=== PATIENT | female | born 2000 | race Hispanic/Latino ===

== ENCOUNTER 2018-04-01 04:07 | Emergency (ER) | payer SELFPAY ==
[2018-04-01] MEDS ORDERED: NA CHLORIDE 0.9% 50 ML IV ONE (05:02)
[2018-04-01] MEDS ORDERED: NA CHLORIDE 0.9% 1,000 ML ONE (05:02)
[2018-04-01] MEDS ORDERED: CEFTRIAXONE 1000 MG/VIAL ONE (05:02)
[2018-04-01 05:05] LABS: Urine Blood 2+ (NEG); Urine Glucose NEGATIVE (NEG); Urine Protein 1+ (NEG)
[2018-04-01 05:30] LABS: Urine Bacteria LOADED /HPF (<20); Urine Culture Reflex Order REFLEXED
--- NOTE | 2018-04-01 06:21 | ER ---
Nurse's Notes [facility] Name: Christine Oneil Age: 17 yrs Sex: Female : 2000 Arrival Date: 04/01/2018 Time: 04:08 Bed 19 Private MD: Diagnosis: Urinary tract infection, site not specified Presentation: 04/01 04:32 Presenting complaint: Patient states: "I am having lower back pain and having have jd3 missed my period so I don't know if I'm or not.". Transition of care: patient was not received from another setting of care. Onset of symptoms was March 31, 2018. Risk Assessment: Do you want to hurt yourself or someone else? Patient reports no desire to harm self or others. Initial Sepsis Screen: Does the patient meet any 2 criteria? No. Patient's initial sepsis screen is negative. Does the patient have a suspected source of infection? No. Patient's initial sepsis screen is negative. Care prior to arrival: None. 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 - Social history:: Smoking status: Patient/guardian denies using tobacco. - Ebola Screening: : Patient negative for fever greater than or equal to 101.5 degrees Fahrenheit, and additional compatible Ebola Virus Disease symptoms. - Family history:: not pertinent. - Hospitalizations: : No recent hospitalization is reported. Screenin:37 Abuse screen: Denies threats or abuse. Nutritional screening: No deficits noted. jd3 Tuberculosis screening: No symptoms or risk factors identified. Fall Risk None identified. Assessment: 04:35 General: Appears in no apparent distress. uncomfortable, Behavior is calm, cooperative, jd3 appropriate for age. Pain: Complains of pain in back Pain currently is 1 out of 10 on a pain scale. Quality of pain is described as aching. Neuro: Level of Consciousness is awake, alert, obeys commands, Oriented to person, place, time, situation. Cardiovascular: Heart tones S1 S2 present Capillary refill < 3 seconds Patient's skin is warm and dry. Respiratory: Airway is patent Respiratory effort is even, unlabored, Respiratory pattern is regular, symmetrical, Breath sounds are clear bilaterally. GI: Abdomen is flat, Bowel sounds present X 4 quads. Abd is soft and non tender X 4 quads. : No signs and/or symptoms were reported regarding the genitourinary system. EENT: No signs and/or symptoms were reported regarding the EENT system. Derm: Skin is intact, Skin is dry, Skin is normal, Skin temperature is warm. Musculoskeletal: Circulation, motion, and sensation intact. Range of motion: intact in all extremities. 05:40 Reassessment: Patient appears in no apparent distress at this time. Patient and/or jd3 family updated on plan of care and expected duration. Pain level reassessed. Patient is alert, oriented x 3, equal unlabored respirations, skin warm/dry/pink. 06:38 Reassessment: Patient appears in no apparent distress at this time. Patient and/or jd3 family updated on plan of care and expected duration. Pain level reassessed. Patient is alert, oriented x 3, equal unlabored respirations, skin warm/dry/pink. pt reported understanding of discharge instructions, even and steady gait upon discharge. Patient denies pain at this time. Vital Signs: 04:41 BP 110 / 75; Pulse 123; Resp 18 S; Temp 98.8(O); Pulse Ox 98% on R/A; Weight 61.23 kg jd3 (R); Height 5 ft. 6 in. (167.64 cm) (R); Pain 0/10; 06:39 BP 115 / 97; Pulse 97; Resp 16 S; Pulse Ox 99% on R/A; Pain 0/10; jd3 04:41 Body Mass Index 21.79 (61.23 kg, 167.64 cm) jd3 ED Course: 04:08 Patient arrived in ED. ds1 04:15 Troy Hess MD is Attending Physician. rn 04:21 Jefferson Self RN is Primary Nurse. jd3 04:34 Triage completed. jd3 04:35 Arm band placed on. jd3 04:38 Patient has correct armband on for positive identification. Bed in low position. Call jd3 light in reach. Side rails up X 1. Adult w/ patient. 05:07 Inserted saline lock: 20 gauge in right antecubital area, using aseptic technique. jd3 Blood collected. 06:37 No provider procedures requiring assistance completed. IV discontinued, intact, jd3 bleeding controlled, No redness/swelling at site. Pressure dressing applied. Administered Medications: 05:10 Drug: NS 0.9% 1000 ml Route: IV; Rate: 1000 ml; Site: right antecubital; jd3 05:53 Follow up: Response: No adverse reaction; IV Status: Completed infusion; IV Intake: jd3 1000ml 05:10 Drug: Rocephin - (cefTRIAXone) 1 grams Route: IVPB; Infused Over: 30 mins; Site: right jd3 antecubital; 05:53 Follow up: Response: No adverse reaction; IV Status: Completed infusion jd3 Intake: 05:53 IV: 1000ml; Total: 1000ml. jd3 Outcome: 06:21 Discharge ordered by . rn 06:37 Discharged to home ambulatory, with family. jd3 06:37 Condition: stable 06:37 Discharge instructions given to patient, family, Instructed on discharge instructions, follow up and referral plans. medication usage, Demonstrated understanding of instructions, follow-up care, medications, Prescriptions given X 1. 06:40 Patient left the ED. jd3 Addendum: 04/05/2018 07:49 Addendum: Culture Results: Positive urine culture. No further action required. Bacteria s s sensitive to prescribed antibiotic. Signatures: Brittany Trujillo ds1 Troy Hess MD MD rn Smirch, Shelby, RN RN ss Davies, Jonathon, RN RN jemerald
--- NOTE | 2018-04-01 06:22 | EDPHYS ---
Physician Documentation [facility] Name: Christine Oneil Age: 17 yrs Sex: Female : 2000 Arrival Date: 04/01/2018 Time: 04:08 Bed 19 Private MD: ED Physician Troy Hess HPI: 04/01 05:03 This 17 yrs old Female presents to ER via Ambulatory with complaints of Flank rn Pain, Abdominal Pain, Fever. 05:03 The patient complains of pain in the right mid back. The pain does not radiate. Onset: rn The symptoms/episode began/occurred yesterday. Associated signs and symptoms: Pertinent positives: dysuria, Pertinent negatives: hematuria. Severity of pain: At its worst the pain was mild in the emergency department the pain is unchanged. The patient has not experienced similar symptoms in the past. Reports chills, right flank pain, + dysuria, no hematuria, reports missing most recent period and not sure if she is .. 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 - Social history:: Smoking status: Patient/guardian denies using tobacco. - Ebola Screening: : Patient negative for fever greater than or equal to 101.5 degrees Fahrenheit, and additional compatible Ebola Virus Disease symptoms. - Family history:: not pertinent. - Hospitalizations: : No recent hospitalization is reported. ROS: 05:03 Constitutional: Negative for weight loss, + chills Eyes: Negative for injury, pain, rn redness, and discharge, Neck: Negative for injury, pain, and swelling, Cardiovascular: Negative for chest pain, palpitations, and edema, Respiratory: Negative for shortness of breath, cough, wheezing, and pleuritic chest pain, Abdomen/GI: Negative for abdominal pain, diarrhea, and constipation, Back: Negative for injury MS/Extremity: Negative for injury and deformity, Neuro: Negative for headache, weakness, numbness, tingling, and seizure. Exam: 05:03 Constitutional: This is a well developed, well nourished patient who is awake, alert, rn and in no acute distress. Head/Face: Normocephalic, atraumatic. Eyes: Pupils equal round and reactive to light, extra-ocular motions intact. Lids and lashes normal. Conjunctiva and sclera are non-icteric and not injected. Cornea within normal limits. Periorbital areas with no swelling, redness, or edema. Cardiovascular: regular, tachycardic, no murmur Respiratory: Lungs have equal breath sounds bilaterally, clear to auscultation and percussion. No rales, rhonchi or wheezes noted. No increased work of breathing, no retractions or nasal flaring. Abdomen/GI: Soft, non-tender, with normal bowel sounds. No distension or tympany. No guarding or rebound. No evidence of tenderness throughout. Back: No spinal tenderness. No costovertebral tenderness. Full range of motion. MS/ Extremity: Pulses equal, no cyanosis. Neurovascular intact. Full, normal range of motion. Equal circumference. Neuro: Awake and alert, GCS 15, oriented to person, place, time, and situation. Cranial nerves II-XII grossly intact. Motor strength 5/5 in all extremities. Sensory grossly intact. Cerebellar exam normal. Normal gait. Vital Signs: 04:41 BP 110 / 75; Pulse 123; Resp 18 S; Temp 98.8(O); Pulse Ox 98% on R/A; Weight 61.23 kg jd3 (R); Height 5 ft. 6 in. (167.64 cm) (R); Pain 0/10; 06:39 BP 115 / 97; Pulse 97; Resp 16 S; Pulse Ox 99% on R/A; Pain 0/10; jd3 04:41 Body Mass Index 21.79 (61.23 kg, 167.64 cm) jd3 MDM: 04:15 Patient medically screened. rn 05:26 Differential diagnosis: pyelonephritis, UTI. Data reviewed: vital signs, nurses notes, furnace maintenance test result(s), and as a result, I will discharge patient. Counseling: I had a detailed discussion with the patient and/or guardian regarding: the historical points, exam findings, and any diagnostic results supporting the discharge/admit diagnosis, lab results, the need for outpatient follow up, to return to the emergency department if symptoms worsen or persist or if there are any questions or concerns that arise at home. Response to treatment: the patient's symptoms have mildly improved after treatment, and as a result, I will discharge patient. 04/01 04:21 Order name: Urine Microscopic Only rn 04/01 04:56 Order name: Urine Dipstick--Ancillary (enter results) 04/01 04:56 Order name: Urine --Ancillary (enter results) 04/01 05:31 Order name: Urine Culture [facility] 04/01 04:21 Order name: Urine Dipstick-Ancillary (obtain specimen); Complete Time: 04:51 rn 04/01 04:21 Order name: Urine Test (obtain specimen); Complete Time: 04:51 rn 04/01 04:51 Order name: IV Start; Complete Time: 05:10 rn Administered Medications: 05:10 Drug: NS 0.9% 1000 ml Route: IV; Rate: 1000 ml; Site: right antecubital; jd3 05:53 Follow up: Response: No adverse reaction; IV Status: Completed infusion; IV Intake: jd3 1000ml 05:10 Drug: Rocephin - (cefTRIAXone) 1 grams Route: IVPB; Infused Over: 30 mins; Site: right jd3 antecubital; 05:53 Follow up: Response: No adverse reaction; IV Status: Completed infusion jd3 Disposition: 04/01/18 06:21 Discharged to Home. Impression: Urinary tract infection, site not specified. - Condition is Stable. - Discharge Instructions: Urinary Tract Infection. - Prescriptions for cefpodoxime 100 mg Oral Tablet - take 2 tablet by ORAL route every 12 hours for 10 days take with food; 40 tablet. - Medication Reconciliation Form, Thank You Letter, Antibiotic Education, Prescription Opioid Use form. - Follow up: Private Physician; When: 2 - 3 days; Reason: Recheck today's complaints, Re-evaluation by your physician. - Problem is new. - Symptoms have improved. Signatures: Dispatcher [employer] Troy Adorno MD MD rn Davies, Jonathon, RN RN jd3 Corrections: (The following items were deleted from the chart) 06:40 06:21 04/01/2018 06:21 Discharged to Home. Impression: Urinary tract infection, site jd3 not specified. Condition is Stable. Forms are Medication Reconciliation Form, Thank You Letter, Antibiotic Education, Prescription Opioid Use. Follow up: Private Physician; When: 2 - 3 days; Reason: Recheck today's complaints, Re-evaluation by your physician. Problem is new. Symptoms have improved. rn
== END 2018-04-01 06:40 | disposition home or self-care (01) ==
LOC: ER 04:07
DX: N39.0 Urinary tract infection, site not specified (principal); B96.20 Unspecified Escherichia coli [E. coli] as the cause of diseases classified elsewhere
CPT/HCPCS: 81003; 81015; 81025; 87077; 87086; 87088; 87186; 96365; 99284; J7030

== ENCOUNTER 2019-05-07 04:14 | Emergency (ER) | payer SELFPAY ==
--- OUTSIDE RECORDS SUMMARY | 2019-05-07 04:17 | XMS REPORT ---
:2000 [facility] Address [address] [place] [address] Dr. Multani [address] [place] [id number] Care Team Providers Name Role Phone Unavailable Unavailable Unavailable Problems This patient has no known problems. Allergies, Adverse Reactions, Alerts This patient has no known allergies or adverse reactions. Medications This patient has no known medications.
[2019-05-07] MEDS ORDERED: FAMOTIDINE 20 MG/2 ML VIAL IV ONE (05:17)
[2019-05-07 05:45] LABS: Absolute Lymphocytes (CBC) 1.7 K/uL (0.7-4.9); Basophils % 0.4 % (0-1.3); Eosinophils % 1.8 % (0-4.4); Hematocrit 43.5 % (36.0-45.0); Lymphocytes % 21.4 % (15.3-44.8); MPV 8.7 fL (7.6-11.3); Monocytes % 8.4 % (3.3-12.3); RBC Red Blood Cell Count 4.72 M/uL (3.86-4.86)
[2019-05-07 05:49] LABS: Urine Bacteria 20-50 /HPF (<20); Urine RBC NONE SEEN /HPF (NONE SEEN)
[2019-05-07 05:50] LABS: Urine Culture Reflex Order NOT NEEDED
[2019-05-07 05:51] LABS: Urine Glucose NEGATIVE (NEG); Urine Specific Gravity 1.025 (1.005-1.030)
[2019-05-07 05:52] LABS: Urine Blood NEGATIVE (NEG); Urine Protein NEGATIVE (NEG); Urine pH 5.5 (5.0-7.0)
[2019-05-07 05:54] LABS: Albumin 3.9 g/dL (3.4-5.0); Bilirubin Direct 0.1 mg/dL (0-0.2); Bilirubin Total 0.4 mg/dL (0.2-1.0); Potassium 3.7 mmol/L (3.5-5.1); Protein, Total 7.7 g/dL (6.4-8.2)
--- NOTE | 2019-05-07 07:03 | EDPHYS ---
Physician Documentation [facility] Name: Christine Oneil Age: 18 yrs Sex: Female : 2000 Arrival Date: 05/07/2019 Time: 04:18 Bed 7 Private MD: ED Physician Denis Oconnor HPI: 05/07 06:46 This 18 yrs old Female presents to ER via Ambulatory with complaints of gs Abdominal Pain. 06:46 The patient presents with abdominal pain in the epigastric area, in the right upper gs quadrant. Onset: The symptoms/episode began/occurred yesterday. Associated signs and symptoms: Pertinent negatives: diarrhea, vomiting. The symptoms are described as crampy. Modifying factors: The symptoms are alleviated by nothing, the symptoms are aggravated by nothing. Severity of pain: At its worst the pain was moderate in the emergency department the pain is unchanged. The patient has experienced similar episodes in the past, a few times. 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 - Social history:: Smoking status: Patient/guardian denies using tobacco. - Ebola Screening: : No symptoms or risks identified at this time. ROS: 06:46 All other systems are negative. gs Exam: 06:46 Head/Face: Normocephalic, atraumatic. Eyes: Pupils equal round and reactive to light, gs extra-ocular motions intact. Lids and lashes normal. Conjunctiva and sclera are non-icteric and not injected. Cornea within normal limits. Periorbital areas with no swelling, redness, or edema. ENT: Nares patent. No nasal discharge, no septal abnormalities noted. Tympanic membranes are normal and external auditory canals are clear. Oropharynx with no redness, swelling, or masses, exudates, or evidence of obstruction, uvula midline. Mucous membranes moist. Neck: Trachea midline, no thyromegaly or masses palpated, and no cervical lymphadenopathy. Supple, full range of motion without nuchal rigidity, or vertebral point tenderness. No Meningismus. Chest/axilla: Normal chest wall appearance and motion. Nontender with no deformity. No lesions are appreciated. Cardiovascular: Regular rate and rhythm with a normal S1 and S2. No gallops, murmurs, or rubs. Normal PMI, no JVD. No pulse deficits. Respiratory: Lungs have equal breath sounds bilaterally, clear to auscultation and percussion. No rales, rhonchi or wheezes noted. No increased work of breathing, no retractions or nasal flaring. Back: No spinal tenderness. No costovertebral tenderness. Full range of motion. Skin: Warm, dry with normal turgor. Normal color with no rashes, no lesions, and no evidence of cellulitis. MS/ Extremity: Pulses equal, no cyanosis. Neurovascular intact. Full, normal range of motion. Neuro: Awake and alert, GCS 15, oriented to person, place, time, and situation. Cranial nerves II-XII grossly intact. Motor strength 5/5 in all extremities. Sensory grossly intact. Cerebellar exam normal. Normal gait. 06:46 Constitutional: The patient appears alert, awake. 06:46 Abdomen/GI: Palpation: moderate abdominal tenderness, in the epigastric area and right upper quadrant. Vital Signs: 04:31 BP 102 / 88; Pulse 97; Resp 18; Temp 97.5; Pulse Ox 99% ; Weight 49.9 kg; Height 5 ft. ea (152.40 cm); Pain 8/10; 05:00 BP 93 / 58; Pulse 58; Resp 16; Pulse Ox 100% on R/A; ea 06:00 BP 95 / 65; Pulse 55; Resp 16; Temp 97.6(TE); Pulse Ox 100% on R/A; ea 04:31 Body Mass Index 21.48 (49.90 kg, 152.40 cm) ea MDM: 04:53 Patient medically screened. gs 06:46 Differential diagnosis: cholecystitis, Cholelithiasis, gastroesophageal reflux disease. Data reviewed: vital signs, nurses notes. Counseling: I had a detailed discussion with the patient and/or guardian regarding: the historical points, exam findings, and any diagnostic results supporting the discharge/admit diagnosis, lab results, radiology results, the need for outpatient follow up. Response to treatment: the patient's symptoms have resolved after treatment, the patient's pain is gone. 05/07 04:52 Order name: Urine Dipstick--Ancillary (enter results) ar5 05/07 04:52 Order name: Urine --Ancillary (enter results) ar5 05/07 04:54 Order name: US Abdomen Limited 05/07 05:36 Order name: Urine Microscopic Only EDMS 05/07 05:36 Order name: Basic Metabolic Panel EDMS 05/07 05:36 Order name: Liver (Hepatic) Function EDMS 05/07 05:36 Order name: Lipase EDMS 05/07 05:37 Order name: CBC with Automated Diff EDMS 05/07 04:23 Order name: Urine Test (obtain specimen); Complete Time: 05:59 05/07 04:23 Order name: Urine Dipstick-Ancillary (obtain specimen); Complete Time: 05:58 05/07 04:54 Order name: IV Saline Lock; Complete Time: 05:57 05/07 04:54 Order name: Labs collected and sent; Complete Time: 05:57 Administered Medications: 05:29 Drug: Pepcid 20 mg Route: IVP; Site: right antecubital; ea 05:58 Follow up: Response: No adverse reaction ea Disposition: 05/07/19 07:02 Discharged to Home. Impression: Cholelithiasis, Epigastric pain. - Condition is Stable. - Discharge Instructions: Abdominal Pain, Adult, Cholelithiasis, [id number]. - Prescriptions for Pepcid 20 mg Oral Tablet - take 1 tablet by ORAL route every 12 hours for 10 days; 20 tablet. - Medication Reconciliation Form, Thank You Letter, Antibiotic Education, Prescription Opioid Use form. - Follow up: Private Physician; When: 2 - 3 days; Reason: Re-evaluation by your physician. Follow up: Janes Mark MD; When: 2 - 3 days; Reason: Re-evaluation by your physician. Signatures: Dispatcher [employer] EDMS Caren Adams RN RN ak1 Elysia Fung RN RN ea Starr, Gregory, MD MD gs Corrections: (The following items were deleted from the chart) 05:54 05:44 UA MICROSCOPIC+U.LAB.BRZ ordered. EDMS EDMS 05:54 05:45 BASIC METABOLIC PANEL+C.LAB.BRZ ordered. EDMS EDMS 05:54 05:45 CBC+H.LAB.BRZ ordered. EDMS EDMS 05:54 05:45 HEPATIC FUNCTION+C.LAB.BRZ ordered. EDMS EDMS 05:54 05:45 LIPASE+C.LAB.BRZ ordered. EDVA EDMS 07:17 07:02 05/07/2019 07:02 Discharged to Home. Impression: Cholelithiasis; Epigastric pain. ak1 Condition is Stable. Forms are Medication Reconciliation Form, Thank You Letter, Antibiotic Education, Prescription Opioid Use. Follow up: Private Physician; When: 2 - 3 days; Reason: Re-evaluation by your physician. Follow up: Janes Mark; When: 2 - 3 days; Reason: Re-evaluation by your physician. gs
--- NOTE | 2019-05-07 07:03 | ER ---
Nurse's Notes [facility] Name: Christine Oneil Age: 18 yrs Sex: Female : 2000 Arrival Date: 05/07/2019 Time: 04:18 Bed 7 Private MD: Diagnosis: Cholelithiasis;Epigastric pain Presentation: 05/07 04:28 Presenting complaint: Patient states: Pt complaining of epigastric pain that radiates ea straight to back, pt reports it started 20 minutes ago with one episode of vomiting. Rates pain 8/10 reports pain feels like it's stabbing. Transition of care: patient was not received from another setting of care. Onset of symptoms was May 07, 2019. Risk Assessment: Do you want to hurt yourself or someone else? Patient reports no desire to harm self or others. Initial Sepsis Screen: Does the patient meet any 2 criteria? No. Patient's initial sepsis screen is negative. Does the patient have a suspected source of infection? No. Patient's initial sepsis screen is negative. Care prior to arrival: None. 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 - Social history:: Smoking status: Patient/guardian denies using tobacco. - Ebola Screening: : No symptoms or risks identified at this time. Screenin:51 Abuse screen: Denies threats or abuse. Nutritional screening: No deficits noted. ea Tuberculosis screening: No symptoms or risk factors identified. Fall Risk None identified. Assessment: 04:20 General: Appears in no apparent distress. Behavior is calm, cooperative. Pain: ea Complains of pain in abdomen. Neuro: No deficits noted. Cardiovascular: No deficits noted. Respiratory: No deficits noted. GI: Abdomen is flat, non-distended, Bowel sounds present X 4 quads. 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 EENT: No signs and/or symptoms were reported regarding the EENT system. Derm: No signs and/or symptoms reported regarding the dermatologic system. Musculoskeletal: No signs and/or symptoms reported regarding the musculoskeletal system. 05:30 Reassessment: Patient appears in no apparent distress at this time. No changes from ea previously documented assessment. Patient and/or family updated on plan of care and expected duration. Pain level reassessed. Patient is alert, oriented x 3, equal unlabored respirations, skin warm/dry/pink. 06:17 Reassessment: Patient appears in no apparent distress at this time. No changes from ea previously documented assessment. Patient and/or family updated on plan of care and expected duration. Pain level reassessed. Patient is alert, oriented x 3, equal unlabored respirations, skin warm/dry/pink. pt informed of wait for US to arrive at 0630. 06:42 Reassessment: US at bedside. ak1 Vital Signs: 04:31 BP 102 / 88; Pulse 97; Resp 18; Temp 97.5; Pulse Ox 99% ; Weight 49.9 kg; Height 5 ft. ea (152.40 cm); Pain 8/10; 05:00 BP 93 / 58; Pulse 58; Resp 16; Pulse Ox 100% on R/A; ea 06:00 BP 95 / 65; Pulse 55; Resp 16; Temp 97.6(TE); Pulse Ox 100% on R/A; ea 04:31 Body Mass Index 21.48 (49.90 kg, 152.40 cm) ea ED Course: 04:18 Patient arrived in ED. ag3 04:27 Elysia Fung, RN is Primary Nurse. ea 04:30 Triage completed. ea 04:32 Patient has correct armband on for positive identification. Bed in low position. Call ea light in reach. Side rails up X2. 04:51 Arm band placed on right wrist. Patient placed in an exam room, on a stretcher, on ea pulse oximetry. 04:53 Denis Oconnor MD is Attending Physician. gs 05:27 Inserted saline lock: 20 gauge in right antecubital area, using aseptic technique. oe Blood collected. 06:50 US Abdomen Limited In Process Unspecified. EDMS 07:00 Janes Mark MD is Referral Physician. gs 07:08 No provider procedures requiring assistance completed. IV discontinued, intact, ak1 bleeding controlled, No redness/swelling at site. Pressure dressing applied. Administered Medications: 05:29 Drug: Pepcid 20 mg Route: IVP; Site: right antecubital; ea 05:58 Follow up: Response: No adverse reaction ea Outcome: 07:02 Discharge ordered by . lakisha 07:08 Discharged to home ambulatory. ak1 07:08 Condition: good 07:08 Discharge instructions given to patient, Instructed on discharge instructions, follow up and referral plans. medication usage, Demonstrated understanding of instructions, follow-up care, medications, Prescriptions given X 1. 07:17 Patient left the ED. ak1 Signatures: Dispatcher [employer] EDMS Caren Adams RN RN ak1 Kenneth Toledo Elena, RN RN ea Starr, Gregory, MD MD gs Gomez, Alice ag3
--- NOTE | 2019-05-07 08:13 | RAD REPORT ---
EXAM DESCRIPTION: US - Abdomen Exam Limited - 05/07/2019 6:52 am CLINICAL HISTORY: Abdominal pain. COMPARISON: None. FINDINGS: Multiple small gallstones. Gallbladder wall is not thickened The biliary tree is normal caliber. Borderline gallbladder distention IMPRESSION: Cholelithiasis without evidence cholecystitis
== END 2019-05-07 07:17 | disposition home or self-care (01) ==
LOC: ER 04:14
DX: K80.20 Calculus of gallbladder without cholecystitis without obstruction (principal)
CPT/HCPCS: 36415; 76705; 80048; 80076; 81003; 81015; 81025; 83690; 85025; 96374; 99284